=== PATIENT | female | born 1970 | race Caucasian/White ===

== ENCOUNTER → 2016-08-09 | Outpatient (CLI) | payer OTHER | LOC: FIMAGING 16:08 | DX: Z12.31 Encounter for screening mammogram for malignant neoplasm of breast (principal); Z80.3 Family history of malignant neoplasm of breast | CPT/HCPCS: G0202 ==

== ENCOUNTER → 2017-06-07 | Outpatient (CLI) | payer OTHER | LOC: BMCIMAGING 12:54 | PROVIDERS: ATTEND Internal Medicine | DX: J98.09 Other diseases of bronchus, not elsewhere classified (principal) ==

== ENCOUNTER → 2017-08-30 | Outpatient (CLI) | payer OTHER | LOC: FIMAGING 15:33 | PROVIDERS: ATTEND Obstetrics & Gynecology Gynecology | DX: Z12.31 Encounter for screening mammogram for malignant neoplasm of breast (principal); Z80.3 Family history of malignant neoplasm of breast ==

== ENCOUNTER → 2017-12-07 | Outpatient (CLI) | payer OTHER | LOC: FCPNEURO 20:00 | PROVIDERS: ATTEND Psychiatry & Neurology Sleep Medicine | DX: G47.33 Obstructive sleep apnea (adult) (pediatric) (principal) ==

== ENCOUNTER → 2017-12-14 | Outpatient (CLI) | payer OTHER | LOC: FIMAGING 11:16 | PROVIDERS: ATTEND Internal Medicine | DX: Z13.820 Encounter for screening for osteoporosis (principal); Z87.81 Personal history of (healed) traumatic fracture ==

== ENCOUNTER → 2018-03-14 | Outpatient (CLI) | payer OTHER ==
[~2018-03-14] MED LIST: GADOBUTROL 10 ML VIAL IVP ONE
== END ==
LOC: FIMAGING 15:09
PROVIDERS: ATTEND Physical Medicine & Rehabilitation
DX: M89.9 Disorder of bone, unspecified (principal); R60.9 Edema, unspecified
CPT/HCPCS: A9585

== ENCOUNTER 2018-03-22 10:05 | Day surgery (SDC) | payer OTHER ==
[2018-03-22] MEDS ORDERED: NALOXONE HCL 0.4 MG/ML INJ IVP PRN (10:24)
[2018-03-22] MEDS ORDERED: fentaNYL 100 MCG/2 ML INJ IVP PRN (10:24)
[2018-03-22] MEDS ORDERED: MIDAZOLAM 2 MG/2 ML VIAL IVP PRN (10:24)
[2018-03-22] MEDS ORDERED: FLUMAZENIL 0.5 MG/5 ML MDV IVP PRN (10:24)
[2018-03-22] MEDS ORDERED: NS 1,000 ML IV SCH (10:30)
[2018-03-22 11:07] LABS: PLATELET COUNT 281 10^3/uL (150-400)
[2018-03-22 11:33] LABS: INR 0.89 (0.83-1.16); PROTIME(PATIENT) 12.3 SEC (12.0-15.0)
[2018-03-22] MEDS ORDERED: MIDAZOLAM 2 MG/2 ML VIAL ONE ×2 (11:37→11:38)
[2018-03-22] MEDS ORDERED: NALOXONE HCL 0.4 MG/ML INJ ONE (11:37)
[2018-03-22] MEDS ORDERED: fentaNYL 100 MCG/2 ML INJ ONE ×2 (11:37)
[2018-03-22] MEDS ORDERED: FLUMAZENIL 0.5 MG/5 ML MDV IVP ONE (11:37)
--- NOTE | 2018-03-22 11:59 | PDPROPOC ---
Sedation Plan of Care Sedation Plan of Care: vital signs stable, mental status noted, patient educated of risks, benefits, alternatives, patient can tolerate sedation ASA Classification: ASA 2 Planned drugs: fentanyl, midazolam Mallampati Score: Class 2 Mallampati Reference Image: Patient passed 3-3-2 rule?: Yes
--- NOTE | 2018-03-22 12:00 | PDRADPRE ---
Radiology History & Physical Indication for procedure: other (Coccyx infection; CT guided aspiration/biopsy) Home medications: Cholecalciferol Vit D3 [Vitamin D 1000 units (OTC)] 3 - 4 tab PO DAILY 10/05/11 [Last Taken 02/22/18] Cholestyramine/Aspartame [Cholestyramine Light Packet] 4 gm PO DAILY 10/05/11 [ Last Taken 03/21/18] Naproxen Sodium [Aleve 220 mg (OTC)] 440 mg PO DAILY PRN 10/05/11 [Last Taken ] Cosentyx Pen 150 mg SQ 03/21/18 [Last Taken 02/15/18] Lexapro 10 mg PO DAILY 03/21/18 [Last Taken 03/21/18] Montelukast Sodium 10 mg PO DAILY 03/21/18 [Last Taken 03/21/18] SUMAtriptan 50 mg PO PRN PRN 03/21/18 [Last Taken 03/16/18] Allergies/Adverse Reactions: meperidine HCl [From Demerol] Allergy (Unknown, Unverified 03/21/18 08:55) Unknown Mental status: A&Ox3 Heart exam: regular rate and rhythm Lungs exam: clear to auscultation Mallampati Score: Class 2
[2018-03-22] MEDS ORDERED: ACETAMINOPHEN 325 MG TAB PO PRN (13:12)
--- NOTE | 2018-03-22 13:14 | PDRADPN ---
Radiology Procedure Note Date of Procedure: 03/22/18 Radiologist: Maurice Dixon Anesthesia: IV Sedation Pre-op Diagnosis: Coccyx infection Post-op Diagnosis: Coccyx infection Indication: Coccyx infection Procedure: CT guided aspiration/biopsy Finding(s): No fluid to aspirate, phelgmon and bone biopsied at coccyx level of inflammation seen on MRI. Inf/Abcess present in the surg proc area at time of surgery?: Yes Depth: Deep Incisional (Fascial) (Coccyx.)
[2018-03-22 14:10] VITALS: BP 109/71
== END 2018-03-22 14:17 | disposition home or self-care (01) ==
LOC: FIMAGING 10:05
PROVIDERS: ATTEND Internal Medicine Infectious Disease
PROC: 0QBS3ZX Excision of Coccyx, Percutaneous Approach, Diagnostic (ICD-10-PCS; principal; 2018-03-22 13:21)
DX: M53.3 Sacrococcygeal disorders, not elsewhere classified (principal)
CPT/HCPCS: J2250; J2310; J3010

== ENCOUNTER → 2018-06-14 | Outpatient (CLI) | payer OTHER | LOC: BMCIMAGING 14:20 | PROVIDERS: ATTEND Family Medicine | DX: R05 Cough (principal) ==

== ENCOUNTER → 2018-10-08 | Outpatient (CLI) | payer OTHER | LOC: FIMAGING 14:11 | PROVIDERS: ATTEND Internal Medicine | DX: Z12.31 Encounter for screening mammogram for malignant neoplasm of breast (principal); Z80.3 Family history of malignant neoplasm of breast ==